=== PATIENT | female | born 1975 | race Caucasian/White ===

== ENCOUNTER 2024-05-08 06:00 | Day surgery (SDC) | payer BC ==
[2024-05-08] MEDS ORDERED: Xylocaine-Mpf 2% 5 Ml Vial ONE (07:03)
[2024-05-08] MEDS ORDERED: Versed 2 MG/2 ML Injection ONE (07:03)
[2024-05-08] MEDS ORDERED: DIPRIVAN 200 MG/20 ML IV ONE (07:04)
[2024-05-08 08:03] VITALS: TEMP 98.7
[2024-05-08 08:09] VITALS: BP 106/71; PULSE 81; RESP 16; O2SAT 98
--- NOTE | 2024-05-10 18:56 | OP ---
SURGERY DATE/TIME: 05/08/24 [id number] PREOPERATIVE DIAGNOSIS: Screening exam. POSTOPERATIVE DIAGNOSIS: Normal colon. PROCEDURE: Colonoscopy. SURGEON: Wilver Blackwell MD. ANESTHESIA: Medications were given by the anesthesia department. INDICATIONS: The patient is a 48-year-old white female presenting now for a screening colonoscopy. The patient was apprised of the risks of the procedure including the risk of perforation, phlebitis, untoward reaction to medication, bleeding, and missed lesions. The patient verbalized her understanding and desired to have the procedure performed. DESCRIPTION OF PROCEDURE AND FINDINGS: Patient was given medication by the anesthesia department. She had continuous pulse oximetry, ECG monitoring, and intermittent blood pressure monitoring during the examination. She was placed in the left lateral decubitus position. Digital rectal examination was performed and revealed normal anal sphincter tone and no masses. A flexible Olympus videocolonoscope was used to intubate the rectum. A view of the colon was developed sequentially to the cecum. Upon insertion and withdrawal, including retroflexion in the rectum, no mucosal lesions were encountered. The scope was removed from the patient who tolerated the procedure well and was sent back to outpatient recovery in good condition. The prep was noted to be good.
== END 2024-05-08 08:17 | disposition home or self-care (01) ==
LOC: SDC 06:00
PROVIDERS: ATTEND Family Medicine
DX: Z12.11 Encounter for screening for malignant neoplasm of colon (principal)
CPT/HCPCS: J2250; J2704